=== PATIENT | male | born 1950 | race Caucasian/White ===

== ENCOUNTER → 2024-02-04 10:50 | Outpatient (BNVA) | payer MEDICARE, SELFPAY | PROVIDERS: PCP Internal Medicine; Referring Provider Internal Medicine; Visit Provider Student in an Organized Health Care Education/Training Program | DX: M17.12 Unilateral primary osteoarthritis, left knee (principal) | CPT/HCPCS: 99203 ==

== ENCOUNTER 2024-03-14 01:22 | Outpatient (CLI) | payer MEDICARE, SELFPAY ==
[2024-03-14 10:36] LABS: HCT 41.5 % (40.0-50.0); HGB 13.6 g/dL (13.5-17.5); MCH 30.8 pg (27.0-33.0); MCHC 32.8 % (32.0-36.0); MCV 94 fL (80-95); MPV 9.4 fL (8.0-11.0); Platelet Count 195 10^3/uL (130-400); RBC 4.41 10^6/uL (4.36-5.78); RDW-SD 47.6 fL; WBC 5.88 10^3/uL (4.4-10.8)
[2024-03-14 10:42] LABS: Anion Gap 6.7 mmol/L (3-11); BUN 45 mg/dL (7-18); CO2 26.3 mmol/L (21.0-32.0); CREATININE 1.4 mg/dL (0.70-1.30); Calcium 9.7 mg/dL (8.5-10.1); Chloride 108 mmol/L (98-107); Estimated GFR 52.09 (mL/min/1.73m2); Glucose 117 mg/dL (74-106); Potassium 4.9 mmol/L (3.5-5.1); Sodium 141 mmol/L (136-145)
== END 2024-03-14 01:23 | disposition home or self-care (01) ==
LOC: LBO 01:23
PROVIDERS: PCP Internal Medicine; Visit Provider Student in an Organized Health Care Education/Training Program
DX: M17.12 Unilateral primary osteoarthritis, left knee (principal); Z01.818 Encounter for other preprocedural examination
CPT/HCPCS: 36415; 80048; 85027; 99024; 73560; 77073

== ENCOUNTER 2024-03-14 10:43 | Outpatient (CLI) | payer MEDICARE, SELFPAY ==
--- NOTE | 2024-03-14 09:00 | DI.RAD_ITS ---
Exam(s) XR STANDING ALIGNMENT EXAM: XR STANDING ALIGNMENT CLINICAL HISTORY: left knee DJD. TECHNIQUE: 2D digital imaging was performed. COMPARISON: CR XR KNEE 3V LT from 10/29/2023 FINDINGS: 3 views Again noted is moderate narrowing of the medial compartment of the left knee. No marginal osteophyte s evident at this level. There is preserved height of the lateral compartment. Right knee appears u nremarkable. No narrowing of the hip joint spaces. Some calcific densities are noted just above the greater trochanter of the right hip. Ankles unremarkable. IMPRESSION: Moderate narrowing of the medial compartment of the left knee again noted. Appears similar to 2023 outside images. DATA REPOSITORY: RADIATION DOSE DELIVERED:
--- NOTE | 2024-03-14 09:39 | DI.RAD_ITS ---
Exam(s) XR KNEE LT 1V EXAM: XR KNEE LT 1V h CLINICAL HISTORY: left knee DJD. TECHNIQUE: 2D digital imaging was performed. COMPARISON: CR XR STANDING ALIGNMENT from 03/14/2024 FINDINGS: Single lateral view of the left knee There is moderate narrowing medial compartment. There is a joint effusion noted. No osseous lesions. Some vascular calcifications noted in the popl iteal artery. IMPRESSION: Moderate joint space narrowing in the medial compartment DATA REPOSITORY: RADIATION DOSE DELIVERED:
== END 2024-03-14 10:44 | disposition home or self-care (01) ==
LOC: DIORS 10:44
PROVIDERS: PCP Internal Medicine; Referring Provider Internal Medicine; Visit Provider Physician Assistant
DX: M17.12 Unilateral primary osteoarthritis, left knee (principal)
CPT/HCPCS: 73560; 77073

== ENCOUNTER 2024-03-25 05:59 | Day surgery (SDC) | payer MEDICARE, SELFPAY ==
[2024-03-25] VITALS (25 sets, daily range): BP systolic 89–143; BP diastolic 37–67; PULSE 63–76; RESP 14–18; TEMP 36–36.7; O2SAT 90–98; BMI 30.9
[2024-03-25] MEDS: Celecoxib 200 MG CAP 400 MG PO (06:38)
[2024-03-25] MEDS: Acetaminophen 500 MG TAB 1000 MG PO (06:38)
[2024-03-25] MEDS: Gabapentin 300 MG CAP PO (06:39)
--- NOTE | 2024-03-25 06:56 | W.ANESPRE ---
General Info Date of Service Date Performed: 03/25/24 Height: 5 ft 5 in Weight: 84.4 kg Body Mass Index (BMI): 30.9 Surgical Procedure: Operation Date: 03/25/24 07:40 Proposed Procedure Side Surgeon p Knee Total Arthroplasty Left Jayden Sexton MD Meds Allergies and Home Medications Allergies Allergy/AdvReac Type Severity Reaction Status Date / Time tamsulosin AdvReac Dizziness/L Verified 03/25/24 06:16 [place] Home Medication ?Medication ?Instructions ?Recorded alfuzosin 10 mg tablet,extended 10 mg PO DAILY 11/21/23 release 24 hr allopurinol 300 mg tablet 300 mg PO DAILY 11/21/23 aspirin 81 mg tablet,delayed 81 mg PO DAILY 11/21/23 release (Adult Aspirin Regimen) calcium 600 mg (as 1 cap PO DAILY 11/21/23 carbonate)-vitamin D3 12.5 mcg (500 unit) capsule (Calcium with Vit D3) lisinopril 10 mg tablet 10 mg PO DAILY 11/21/23 loratadine 10 mg capsule 10 mg PO DAILY 11/21/23 metoprolol succinate 25 mg 25 mg PO DAILY 11/21/23 tablet,extended release 24 hr nitroglycerin 0.4 mg sublingual 0.4 mg sublingual Q5M PRN 11/21/23 tablet triamcinolone acetonide 55 mcg 1 spray intranasal DAILY 11/21/23 nasal spray aerosol (Nasacort) vit A 7,160 unit-vit C 113 mg-vit 2 tab PO BID 11/21/23 [id number]-[id number]-lutein 0.5 mg tablet (Ocular Vitamins) mecobalamin (vitamin B12) 1,000 1,000 mcg PO DAILY 01/30/24 mcg chewable tablet rosuvastatin 40 mg tablet 40 mg PO DAILY 01/30/24 ferrous sulfate 325 mg (65 mg 325 mg PO DAILY 03/14/24 iron) tablet (Feosol) Current Visit Medications: Current Medications Generic Name Dose Route Start Last Admin Trade Name Freq PRN Reason Stop Dose Admin Acetaminophen 1,000 mg 03/25/24 06:00 03/25/24 06:38 Acetaminophen 500 Mg Tab PO 03/25/24 23:59 1,000 mg PREOP AGUEDA Administration Celecoxib 400 mg 03/25/24 06:00 03/25/24 06:38 Celecoxib 200 Mg Cap PO 03/25/24 23:59 400 mg PREOP AGUEDA Administration Droperidol 0.625 mg 03/25/24 06:39 Droperidol 5 Mg/2 Ml Vial IVP 04/24/24 06:38 DIRECTED PRN Nausea Ephedrine Sulfate 0 mg 03/25/24 06:39 Ephedrine 25 Mg/5 Ml Syringe IVP 04/24/24 06:38 DIRECTED PRN Fentanyl 0 mcg 03/25/24 06:39 Fentanyl 100 Mcg/2 Ml Vial IVP 04/24/24 06:38 DIRECTED PRN Gabapentin 300 mg 03/25/24 06:00 03/25/24 06:39 Gabapentin 300 Mg Cap PO 03/25/24 23:59 300 mg PREOP AGUEDA Administration Hydromorphone HCl 0 mg 03/25/24 06:39 Hydromorphone 1 Mg/Ml Syr IVP 04/24/24 06:38 DIRECTED PRN Ringer's Solution 1,000 mls @ 80 mls/hr 03/25/24 06:00 IV 03/25/24 23:59 INFUSION AGUEDA Cefazolin Sodium/Dextrose 2 gm in 50 mls @ 100 mls/hr 03/25/24 06:00 Ancef Duplex IVPB 03/25/24 23:59 PREOP AGUEDA Tranexamic Acid/Sodium Chloride 1,000 mg in 100 mls @ 600 mls/hr 03/25/24 06:00 IVPB 03/25/24 23:59 PREOP AGUEDA IV Miscellaneous Supplies 1 each 03/25/24 06:00 Iv Access IV 03/25/24 23:59 DIRECTED AGUEDA Naloxone HCl 0 mg 03/25/24 06:39 Naloxone 0.4 Mg/Ml Vial IVP 04/24/24 06:38 PRN PRN Sodium Chloride 0 ml 03/25/24 06:00 Normal Saline Flush 10 Ml Syr IV 03/25/24 23:59 PRN PRN Sodium Chloride 0 ml 03/25/24 06:00 Normal Saline 10 Ml Vial IJ 03/25/24 23:59 DIRECTED PRN Sterile Water 0 ml 03/25/24 06:00 Water,Injection,Sterile 10 Ml Vial IJ 03/25/24 23:59 DIRECTED PRN PFSH Active Problems Active Problems: Problem Status Onset Code Left knee DJD Chronic M17.12 ISIDORO (obstructive sleep apnea) Chronic G47.33 Malignant tumor of prostate Chronic C61 Medical History Medical History Sciatica History of [facility] (myocardial infarction) 2021. F/U with cardiology seen at [facility] 02/2024 Hypertension Hyperlipidemia Thromboembolism Gout Surgical History Surgical History History of cataract surgery BILATERAL S/P ORIF (open reduction internal fixation) fracture LEFT DISTAL RADIUS 08/29/12 History of carpal tunnel release Right: 11/04/14, 03/04/15 H/O Spinal surgery lateral left L4-5 foraminotomy and discectomy (DOS 06/28/21) History of cardiac catheterization 2021 Tobacco Smoking/Tobacco Use Status: Former Tobacco Use Alcohol Alcohol Intake: current Alcohol intake frequency: 0-2 drinks per day Alcohol type: beer and wine Substance Use Substance use: Never Substance use type: does not use and former substance user Details: alcohol: t-1, couple drinks Vital Signs and Lab Results Vital Signs Most Recent Vital Signs in EMR: Most Recent Vital Signs Temp Pulse BP Pulse Ox 36.7 C 66 143/63 H 97 03/25/24 06:25 03/25/24 06:25 03/25/24 06:25 03/25/24 06:25 Lab Results Blood Type / Crossmatch: No Data to Display Complete Blood Count: White Blood Count 5.88 10^3/uL (4.4-10.8) 03/14/24 10:15 Red Blood Count 4.41 10^6/uL (4.36-5.78) 03/14/24 10:15 Hemoglobin 13.6 g/dL (13.5-17.5) 03/14/24 10:15 Hematocrit 41.5 % (40.0-50.0) 03/14/24 10:15 Platelet Count 195 10^3/uL (130-400) 03/14/24 10:15 Complete Metabolic Panel: Sodium 141 mmol/L (136-145) 03/14/24 10:15 Potassium 4.9 mmol/L (3.5-5.1) 03/14/24 10:15 Chloride 108 mmol/L (98-107) H 03/14/24 10:15 Carbon Dioxide 26.3 mmol/L (21.0-32.0) 03/14/24 10:15 BUN 45 mg/dL (7-18) H 03/14/24 10:15 Creatinine 1.4 mg/dL (0.70-1.30) H 03/14/24 10:15 Est GFR (CKD-EPI 2020) 52.09 (mL/min/1.73m2) 03/14/24 10:15 Calcium 9.7 mg/dL (8.5-10.1) 03/14/24 10:15 Glucose 117 mg/dL (74-106) H 03/14/24 10:15 Liver Function Panel: No Data to Display Coagulation Panel: No Data to Display Cardiac Panel: No Data to Display Arterial Blood Gas: No Data to Display Venous Blood Gas: No Data to Display Pancreas Panel: No Data to Display Thyroid Panel: No Data to Display Infectious Disease: No Data to Display Blood Cultures: No Data to Display Toxicology Panel: No Data to Display Anesthesia Assessment and Plan Anesthesia History Personal History: No History of Anesthesia Complications Family History: No Family History of Anesthesia Complications Exercise Tolerance Exercise Tolerance: Metabolic Equivalents>4 Pertinent Negatives Pertinent Negatives: No Symptoms of GERD Cardiac & Pulmonary Exam Cardiac Exam: Normal S1/S2 Heart Sounds Pulmonary Exam: Clear Bilateral Breath Sounds Implantable Cardiac Device Does patient have a Pacemaker or an ICD?: No Airway Exam Known Difficult Airway: No Mallampati Class: 3 Mouth Opening: Normal (> 3cm) Thyromental Distance: Greater than 3 cm Neck Range of Motion: Full ROM Neck Circumference: Thick Teeth Condition: Normal Dentition ASA Classification ASA Score: ASA 3 Emergency Case?: No NPO Status NPO Status: NPO Clears >2 hours, Solids >8 hours Anesthesia Plan Resuscitation Status: Full Code Anesthesia Technique: Spinal Anesthesia Airway Planned: Natural Airway Monitors Used: Standard Monitors
[2024-03-25] MEDS: Lactated Ringers 500 ML 30 ML IV (07:10)
--- NOTE | 2024-03-25 07:20 | W.PM.DSUDISC ---
Date of service: 03/25/24 Time of Service: 07:23 Discharge Plan Disposition Patient Disposition: Home Condition: Good Discharge Details Reason For Visit: Left knee DJD Attending Provider: Jayden Sexton Primary Care Provider: Shreya Sow Home Meds and New Rx's Prescriptions: New acetaminophen 500 mg tablet 1,000 mg PO Q8H PRN Qty: 90 0RF Rx Instructions: Take two tablets up to every 8 hours as needed for pain aspirin 81 mg tablet,delayed release (DR/EC) 81 mg PO BID 30 Days Qty: 60 0RF celecoxib [Celebrex] 200 mg capsule 200 mg PO BID PRNQty: 60 0RF Rx Instructions: Take one tablet twice daily for pain and inflammation docusate sodium [Colace] 100 mg capsule 100 mg PO BID Qty: 30 0RF pantoprazole 40 mg tablet,delayed release (DR/EC) 40 mg PO DAILY 14 Days Qty: 14 0RF dexamethasone 4 mg tablet 4 mg PO DAILY Qty: 2 0RF Rx Instructions: Take one tablet once daily for two days gabapentin 300 mg capsule 300 mg PO QHS Qty: 14 0RF Rx Instructions: Take one tablet at bedtime oxycodone 5 mg tablet 5 mg PO Q4H PRNQty: 18 0RF Rx Instructions: Take one tablet up to every 4 hours as needed for severe postoperative pain Continued rosuvastatin 40 mg tablet 40 mg PO DAILY mecobalamin (vitamin B12) 1,000 mcg tablet,chewable 1,000 mcg PO DAILY ferrous sulfate [Feosol] 325 mg (65 mg iron) tablet 325 mg PO DAILY alfuzosin 10 mg tablet extended release 24 hr 10 mg PO DAILY Rx Instructions: administer after the same meal each day allopurinol 300 mg tablet 300 mg PO DAILY calcium carbonate-vitamin D3 [Calcium 600 with Vitamin D3] 600 mg-12.5 mcg (500 unit) capsule 1 cap PO DAILY lisinopril 10 mg tablet 10 mg PO DAILY loratadine 10 mg capsule 10 mg PO DAILY metoprolol succinate 25 mg tablet extended release 24 hr 25 mg PO DAILY triamcinolone acetonide [Nasacort] 55 mcg aerosol,spray 1 spray intranasal DAILY Rx Instructions: administer into each nostril nitroglycerin 0.4 mg tablet, sublingual 0.4 mg sublingual Q5M PRN Rx Instructions: do not exceed 3 doses per episode Ocular Vitamins 7,160 unit- 113 mg-0.5 mg tablet 2 tab PO BID Discontinued aspirin [Adult Aspirin Regimen] 81 mg tablet,delayed release (DR/EC) 81 mg PO DAILY Discharge Instructions Additional Instructions: Total Knee Discharge Instructions Activity: The most important activity is to walk and to work on gentle motion (both flexion and extension). You should try to take short walks a few times a day. It is important that when resting you work on keeping the knee straight. Avoid putting a pillow behind the knee as this will encourage flexion. Work on range of motion exercises as provided by Physical Therapy. - Start outpatient physical therapy within 2 weeks. - You should wear the ZANDER hose on both legs for 2 weeks. You may remove these at night. You may also use any compression sock in place of the ZANDER hose. - Utilize [employer] to review exercises, see videos on exercises and obtain basic information pertaining to your surgery and your recovery. Dressing: Remove the Barber wrap by 2 days after your surgery and put on the ZANDER stocking given to you from the hospital. Keep the surgical dressing (underneath the BARBER wrap) in place for at least one week. After the first week it may be removed and replaced with light gauze and tape or nothing. The wound and dressing may get wet after 3 days but avoid soaking the dressing or otherwise it will need to be changed. Many people prefer covering the dressing with cling wrap (saran wrap) to minimize it from getting soaked. If it gets wet, just pat dry. If it starts to peel off then it will need to be changed. Medications: - You should take Tylenol and anti-inflammatory Celebrex as your primary pain control medications. If the Celebrex is too expensive or not covered, please call the office for another alternative (Advil/Ibuprofen or Naproxen/Aleve) - You have been prescribed a stronger pain medication Oxycodone for breakthrough pain, take as needed as prescribed. - You have also been prescribed a stomach acid reduction agent Pantoprozole to help reduce stomach acid and reflux. - You have been prescribed Gabapentin to take at night for restlessness and nerve pain. - You will be taking Aspirin 81mg twice a day for DVT prevention unless instructed otherwise. - You have also been prescribed Decadron to take to control post-operative nausea and pain. You will start this tomorrow. - If you have constipation you should take Colace (which has been prescribed) or Miralax (which is available [id number]). It takes most people 3-4 days to have a bowel movement. Follow-up: 2 weeks If you have any acute concerns or questions, please do not hesitate to contact the office at [phone]. You may contact Dr. Sexton with any questions after hours through the hospital at [phone] or on his cell phone at [phone]. Referrals: Jayden Sexton MD [ [facility] STAFF PHYSICIAN] - Equipment/Supplies: Walker Activity:: Elevate Remove Dressings/Wound Care:: Do Not Remove Shower/Bathe:: Cover Diet:: As Tolerated Discharge Orders Discharge Orders: Discharge Order (Routine); Ordered 03/25/24 Ordered By: Melva Crum
[2024-03-25] MEDS: ceFAZolin 2 GM/50 ML BAG IVPB (07:50)
[2024-03-25] MEDS: TRANEXAMIC ACID/SOD. CHL. 1,000 MG/100 ML BAG 600 MG IVPB (08:00)
--- NOTE | 2024-03-25 08:40 | W.ANESNERVE ---
Nerve Block Single Injection Procedure Date and Time Date Performed: 03/25/24 Procedure Start: 07:16 Location Where Procedure Performed Procedure Location: Operating Room Procedure Stop: 07:24 Reason Performed: Postoperative Analgesia Requesting Provider: Jayden Sexton Timeout Performed Timeout Performed: Yes Monitoring Used ECG, Blood Pressure, SpO2, ETCO2 and See EMR for corresponding vital signs Sterility Sterility: Hand Hygiene, Surgical Cap, Surgical Mask, Sterile Gloves, Sterile Drape/Sheet and Chlorhexidine Sedation Given During Procedure Sedation Given (Indicate Dose Given): No Sedation given and Versed IV Dose:: 2mg Patient Mental Status Patient Mental Status: Sedate with meaningful communication Nerve Block 1st Nerve Block: Laterality: Left Block Type: Adductor Canal Ultrasound Image Saved?: Yes Needle / Catheter Used: 100mm SonoPlex II Local Anesthetic Bolus (Indicate Dose Given): Lidocaine used for local infiltration of skin, Injected in 3-5ml increments after negative blood aspiration and Ropivacaine 0.5% Dose:: 0.5%/20cc (100mg) Additives (Indicate Dose Given): Epinephrine to make 1:200,000 (5mcg/ml) Dose:: 100mcg and Decadron Dose:: 10mg PF Ultrasound: Sterile probe cover and gel used Nerve Stimulator: Not Used Paresthesia: None Procedure Tolerated: No Complications and Patient tolerated well Procedure Outcome: Successful Performed By: Irwin Cho
--- NOTE | 2024-03-25 09:02 | ROE_ITS ---
Date of service: 03/25/24 Time of Service: 07:45 Operative Note Operative Note DATE OF PROCEDURE: 03/25/24 PRE-OP DIAGNOSIS: Left Knee Osteoarthritis POST-OP DIAGNOSIS: same PROCEDURE: Left Total Knee Replacement SURGEON: Jayden Sexton UTILIZATION SUPERVISOR: Melva Crum ANESTHESIA TYPE: Spinal Refer to Anesthesia Record ESTIMATED BLOOD LOSS: 150 PATHOLOGY: none sent TOURNIQUET TIME: 0 COMPLICATIONS: None Patient was transported to: PACU Patient's condition: stable Implants: 1. Depuy Attune Cementless Cruciate Retaining Femoral Component, Size 5 2. Depuy Attune Cementless Fixed Bearing Tibial Component, Size 6 3. Depuy Attune 5x6mm CR/FB Poly 4. Depuy Attune Patellar Component, Size 35 Indications: I have seen Candy in clinic for symptoms of knee arthritis, confirmed with radiographic findings. He has exhausted nonoperative methods and was having significant limitations in daily function and desired better function and less pain. I discussed the technical details of a knee replacement. I explained the risks of the procedure to include, but not limited to, bleeding, infection, pain, stiffness, fracture, damage to nerves and vessels, damage to muscles and tendons, loosening, need for repeat procedure, blood clot and cardiopulmonary demise. Despite these risks, He elected to proceed. Findings: There was significant signs of arthritis throughout the knee with notable synovitis. There was complete loss of cartilage over the weightbearing portion of the medial femur down to exposed bone. Procedure Description: Rene was greeted in the preoperative holding area where the correct side was identified and marked. The consent was reviewed with the patient and signed. The history and physical was updated. All questions were answered. Preoperative medications were administered: Acetaminophen 1000mg, Celebrex 400mg, and Gabapentin 300mg. An adductor canal block was then administered by the anesthesia team in the D[facility]. He was taken back to the operating room. A spinal anesthestic was then administered. The patient was placed into the supine position on the operating room table. Posts were placed for positioning during the procedure. All bony prominences were well padded. Prophylactic antibiotics in the form of Cefazolin were administered. 1g of Tranxemic Acid was given intravenously within 30 minutes of incision. The left leg was then prepped with Chloraprep and draped in a standard fashion with impervious stockinette. A second prep with Chloraprep was performed prior to application of Iodine impregnated skin protection. A timeout to confirm correct identity, side and site, procedure, allergies, anesthesia, and medical concerns was performed. With the knee in some flexion, a midline incision was made overlying the knee. Full thickness skin flaps were raised once the extensor mechanism was encountered. These were raised medially and laterally. Any bleeding was controlled with electrocautery. Once the extensor mechanism was fully exposed, a medial parapatellar arthrotomy was performed in a flexed position. All bleeding from the arthrotomy and the geniculate arteries was coagulated. A medial subperiosteal peel was performed with electrocautery to the midcoronal plane. The fat pad was removed while keeping the patellar tendon protected. The anterior distal femur synovium was removed for later visualization. The ACL and PCL were resected and the anterior horn of the lateral meniscus was transected. The knee was then flexed with the patella everted. There is notable synovitis seen along with a large effusion. The synovium was debrided. Using a step drill, and based on preoperative templating, the femoral canal was entered. This was done with a step drill without any difficulty. The intramedullary distal femoral cut guide was inserted, set to a 6 degree valgus cut and 9mm cut thickness. The distal femoral cut guide was then held in position and pinned. With the soft tissues protected, the distal cut was performed. This was passed over a few times to ensure a planar cut. I then turned attention to the tibia. The extramedullary guide was placed onto the leg. The distal aspect was slid medial to adjust for position of center of ankle and stay in line with shaft of the tibia. Approximately 3-5 degrees of posterior slope was kept in the proximal cutting guide. The center of the guide was aligned with the PCL. The stylus was used to assess cut thickness. The medial side, most involved side, was set for a 6mm cut. This was then held in position and pinned into place with 2 additional pins and a cross pin for stability. The medial and lateral collateral ligaments were protected and the cut was performed. With this completed, it was assessed and noted to be of appropriate dimensions. The guide was removed. A spacer block was inserted and the knee was brought into extension. The 6mm spacer block provided full extension, without hyperextension and with stability of both the medial and lateral collateral ligaments was assessed. The pins from the femur and the tibia were then removed. The distal femur was then sized. The anterior stylus was placed onto the lateral ridge of the anterior femur. This indicated a size 5 femur. The external rotation of the guide was adjusted to 3 degrees to match the epicondylar axis, perpendicular to [place]?s line. The 4-in-1 cutting guide was the placed. The posterior medial femur cut was evaluated and appeared of good thickness. The spacer block was inserted underneath the cutting guide and stability was confirmed in 90 degrees of flexion. An maury wing was used to confirm appropriate position of the anterior cut to avoid notching. This cutting guide was ensured to be flush on the cut surface and then pinned into place with headed pins. While protecting the soft tissues, quad tendon, and collateral ligaments, the anterior and posterior cuts were performed with a saw. The central two pins were removed and the posterior and anterior chamfers were cut next. The notch-cutting guide was placed. This was pinned to lateralize the femoral component as much as possible while keeping it flush on the cut surface. This was then pinned into position. A reciprocating saw was used to make the notch cut. A rasp smoothed the cut surfaces. The medial and lateral menisci were rem everette. A trial femoral component was then inserted, impacted down to the cut surfaces, and the lug holes were drilled. A provisional trial tibial component was placed and the knee was brought through range of motion. There was noted to be excellent extension and flexion. There was no significant instability. The patella was tracking without thumbs. A size 6mm polyethylene component provided the best range of motion and stability with less than 2mm gapping with medial and lateral stress and full extension without significant hyperextension. The tibial cut surface was fully exposed. The tibia was then sized as a 6. The tibia had been previously marked during trialing to correspond to the center of the tibial component to help with rotation. The trial was aligned to this randa, approximately rotated to the medial 1/3rd of the tibial tubercle. The trial was pinned into place. The tibia was prepared with a reamer and a keel punch and lug holes. The knee was then brought into extension and the patella was measured as 23mm. Using the patellar clamp and cut guide, this was resected to a flat surface with at least 13mm of thickness remaining. The size 35 patella fit the best. This was oriented and then clamped into position. The lugs were drilled. The trial components were removed. The final components were opened on the back table. The periosteal and capsular tissues, especially posteriorly, around the knee were then systematically injected with a periarticular cocktail consisting of 246mg of Ropivacaine, 0.5mg of Epinephrine, 0.08mg of Clonidine, and 30mg of Ketorolac, diluted to 100cc. On the back table, with the implants opened, the cement was mixed. One batch of high viscosity cement was prepared with vacuum assistance. After the cement was ready a small amount was placed on the cut surface of the patella and the patellar button was clamped into position and held. While the cement was hardening, the cementless knee components were placed. Starting with the tibial component, the tibia was subluxed anteriorly and the lug holes of the component were lined up. The tibia was then impacted with an impactor and mallet until the tibial component was in contact with the tibia. The final polyethylene component was inserted. Then, the femoral component was inserted. The lug holes were aligned and the component was impacted into position. The knee was irrigated with Surgiphor Betadine solution. This was allowed to sit in the knee for 3 minutes and then it was irrigated out with saline. After the cement had finally cured, approximately 15min, the clamp was removed from the patella and the knee was taken through range of motion. The patella was tracking with a no-thumbs technique. The capsule was then reapproximated with a No. 1 Vicryl at multiple locations. The capsule was finally closed with a No. 2 Stratafix, barbed suture. The second dosing of 1g TXA was started. Deep tissues were then reapproximated with 0 Vicryl and 2-0 Vicryl. The skin was closed with a running 3-0 Monocryl in a subcuticular fashion. This was reinforced with skin glue. A Mepilex silver dressing was applied along with a [id number]-bi-ebxcx CHANDA wrap. A CryoCuff was applied. eRne was transferred to the hospital bed without difficulty an suffering no apparent complication. He has a good prognosis. Physical therapy will start today and without restrictions, weight-bearing as tolerated. Aspirin 81mg BID will be used for DVT prophylaxis.
--- NOTE | 2024-03-25 11:47 | PT.INIE ---
PT Notes Visit Reasons: Left knee DJD Physical Therapy Day Surgery Initial Evaluation Date: 03/25/2024 Referring Doctor: Dr. Sexton PT Orders: PT CONSULT: Status post Ortho surgery Precautions: Weightbearing as tolerated left lower extremity; TEDS x 2 weeks Patient Profile/Admitting Diagnosis: Patient is 74-year-old male presenting status post elective left TKA on 03/25/2024 secondary to DJD. Postop uncomplicated PMHX: DJD, ISIDORO, malignant tumor of prostate Social History/Home Situation: Patient resides at home with his 3 steps to enter with no rail and a flight of stairs with left rail ascending to his bedroom. He reports he can stay on first floor if necessary however prefers to sleep in his bed. 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 Equipment Owned/DME: Axillary crutches, grab bars in the bathroom, tub seat comfort height toilet, Subjective: Patient reports he is axillary crutches at home and has used them in the past for a right ankle injury and would like to try crutches prior to discharge to home Objective: [] General Observation: Male semireclined on stretcher ice to left knee agreeable to participate in evaluation Mental Status: Alert and oriented x 4, slow processing noted Pain: Left knee at rest 1/10; after ambulation 3/10 ROM: Right Upper Extremity: WNL Left Upper Extremity: WNL Right Lower Extremity: WNL Left Lower Extremity: Hip and ankle within normal limits, knee 4-94 active Strength: Right Upper Extremity: 5/5 globally Left Upper Extremity: 5/5 globally Right Lower Extremity: 5/5 globally Left Lower Extremity: hip flexion 3 -/5, abduction 3/5, knee extension 3 -/5, knee flexion 2+/5, ankle 3/5 Sensation: Intact Bed Mobility/Transfers: Supine to sit independent Sit to supine supervision with increased time to get left lower extremity onto bed Sit to stand supervision with axillary crutches Stand to sit supervision with axillary crutches Bed to chair supervision with axillary crutches or FWW Gait: Pt ambulated with FWW 100 feet level surfaces including turns supervision demonstrating impaired left knee flexion during swing phase and absent heelstrike on left, decreased step length with early heel off. Pt amb with B axillary crutches with supervision 100 feet level surfaces including turns. with 3 point gait pattern demonstrating impaired left knee flexion, absent heel strike on the left decreased step length with early heel off on left Stairs: 2 steps x 5 with left rail ascending and bilateral axillary crutches on right side supervision step to pattern Balance: Static Sitting: Normal Dynamic Sitting: good Static Standing: Good + Dynamic Standing: good Special Tests: Mobility Limitations Standardized Measure [facility] AM-PAC 6 clicks Basic Mobility Inpatient Short Form: Raw Score: 23 CMS Score: 11.20% Informed Consent/Education: Patient instructed in purpose of PT consult. Packet containing TKA exercise protocol has been given to patient. Education and training on initial set of exercises that can be done at home have been completed with patient. Assessment: Patient demonstrates ability to ambulate safely with axillary crutches with supervision. Patient presents with clinical signs and symptoms consistent with current/admitting diagnoses that have resulted to mobility limitations, gait instability, generalized weakness, and impairment of motor control as demonstrated by the following impairment level findings: 1. Decreased strength to left knee major muscle groups 2. Impaired standing balance 3. Limitation of joint range of motion in left knee Impairments are contributing to the following functional limitations: 1. Inability to safely ambulate without assistive device 2. Increase completion time for mobility ADL performance 3. Increased fall risk 4. decline in ability to safely manage stairs without assistance Despite deficits stated above patient demonstrates ability to return home with providing supervision and to follow-up with MD and outpatient PT as scheduled. Patient is assessed as a low complexity based on the following: History: 74-year-old male with impairment level findings, functional limitations, and past medical history as indicated above Examination: Demonstrable impairment in strength, balance, and mobility level with underlying impairments and functional limitations as documented above Presentation:stable Decision Making: low Goals: N/A. Plan of Care/Treatment Plan: N/A. DISCHARGE RECOMMENDATIONS: Home with outpatient PT as scheduled TREATMENT CODE/TIME: 44555 x 26 mins for 1 unit Thank you for the opportunity to participate in the care of this patient. Marta Durbin, PT Please sign an return this page within 30 days if you agree with the above POC. Thank you! Physician Signature [facility]
--- NOTE | 2024-03-25 12:29 | W.ANESPOSTOP ---
Postoperative Evaluation Date, Time and Location Date Performed: 03/25/24 Time Performed: 12:01 Patient Location: Day Surgery Unit Vital Signs Most Recent Imported Vital Signs: Most Recent Vital Signs Temp Pulse Resp BP Pulse Ox 36.0 C L 65 18 128/55 L 98 03/25/24 10:35 03/25/24 10:35 03/25/24 10:35 03/25/24 10:35 03/25/24 10:35 Pain Score Most Recent Pain Score: Most Recent Pain Score Pain Level 0 03/25/24 10:35 Assessment Mental Status: Awake (Alert & Oriented to Patient Baseline) Airway and Respiratory Function: Patent airway with normal (patient baseline) respiratory exam Cardiovascular Function: Hemodynamically Stable Hydration Status: Adequately Hydrated Nausea & Vomiting: No Nausea or Vomiting Pain: Pain is tolerable per patient Peripheral Nerve Block: Regional nerve block not resolved at time of post operative discharge
== END 2024-03-25 12:29 | disposition home or self-care (01) ==
PROVIDERS: PCP Internal Medicine; Visit Provider Student in an Organized Health Care Education/Training Program
PROC: (CPT 27447; principal; 2024-03-25 07:30)
DX: M17.12 Unilateral primary osteoarthritis, left knee (principal); G47.33 Obstructive sleep apnea (adult) (pediatric); I10 Essential (primary) hypertension; E78.5 Hyperlipidemia, unspecified
CPT/HCPCS: 27447; 64447; 97161; C1776; J0171; J0690; J1100; J2250; J2371; J2401; J2405; J2704

== ENCOUNTER 2024-04-21 16:02 | Outpatient (CLI) | payer MEDICARE, SELFPAY ==
--- NOTE | 2024-04-21 13:45 | DI.RAD_ITS ---
Exam(s) XR KNEE LT 1V XR STANDING ALIGNMENT EXAM: XR STANDING ALIGNMENT and XR knee LT 1 V CLINICAL HISTORY: S/P LEFT TKR. TECHNIQUE: 2D digital imaging was performed. Five images were obtained. COMPARISON: CR XR STANDING ALIGNMENT from 03/14/2024 CR XR KNEE LT 1V from 03/14/2024 FINDINGS: BONES: The hips are well maintained. Dystrophic calcifications are seen adjacent to the right greate r trochanter. The patient is now status post left total knee replacement. The orthopedic hardware a ppears in good position. No suspicious lucencies are seen around the orthopedic hardware. The right knee is well maintained. The ankles are well maintained.There is no significant leg length discrepa ncy. SOFT TISSUE: Atherosclerotic calcification is present. IMPRESSION: Stable left total knee arthroplasty. DATA REPOSITORY: RADIATION DOSE DELIVERED:
== END 2024-04-21 16:03 | disposition home or self-care (01) ==
LOC: DIORS 16:02
PROVIDERS: PCP Internal Medicine; Referring Provider Internal Medicine; Visit Provider Student in an Organized Health Care Education/Training Program
DX: Z47.1 Aftercare following joint replacement surgery; Z96.652 Presence of left artificial knee joint
CPT/HCPCS: 99024; 73560; 77073

== ENCOUNTER → 2024-05-19 13:08 | Outpatient (BNVA) | payer MEDICARE, SELFPAY | PROVIDERS: PCP Internal Medicine; Referring Provider Internal Medicine; Visit Provider Student in an Organized Health Care Education/Training Program | DX: Z47.1 Aftercare following joint replacement surgery (principal); Z96.652 Presence of left artificial knee joint | CPT/HCPCS: 99024 ==

== ENCOUNTER → 2024-06-19 13:19 | Outpatient (BNVA) | payer MEDICARE, SELFPAY | PROVIDERS: PCP Internal Medicine; Referring Provider Internal Medicine; Visit Provider Physician Assistant | DX: Z47.1 Aftercare following joint replacement surgery (principal); Z96.652 Presence of left artificial knee joint | CPT/HCPCS: 99024 ==

== ENCOUNTER 2025-03-26 14:48 | Outpatient (CLI) | payer MEDICARE, SELFPAY ==
--- NOTE | 2025-03-26 13:00 | DI.RAD_ITS ---
Exam(s) XR KNEE LT 2V AP,LAT EXAM: XR KNEE LT 2V AP,LAT CLINICAL HISTORY: ANNUAL F/U L TKA. TECHNIQUE: 2D digital imaging was performed. COMPARISON: CR XR KNEE LT 1V from 04/21/2024 FINDINGS: Two views Stable position alignment of the components of the knee prosthesis. No fracture or loosening evident. No evidence of osteomyelitis. Vascular calcifications again noted in the femoral and popliteal arteries. IMPRESSION: Stable satisfactory appearance of the left knee prosthesis components. DATA REPOSITORY: RADIATION DOSE DELIVERED:
== END 2025-03-26 14:49 | disposition home or self-care (01) ==
LOC: DIORS 14:49
PROVIDERS: PCP Internal Medicine; Referring Provider Internal Medicine; Visit Provider Physician Assistant
DX: Z47.1 Aftercare following joint replacement surgery (principal); Z96.652 Presence of left artificial knee joint; M70.52 Other bursitis of knee, left knee
CPT/HCPCS: 99213; 73560